=== PATIENT | female | born 2000 | race Hispanic/Latino ===

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

== ENCOUNTER 2021-07-20 05:34 | Emergency (ER) | payer OTHER ==
[2021-07-20] MEDS ORDERED: Naproxen 500 MG TAB ONE (06:03)
== END 2021-07-20 06:06 | disposition home or self-care (01) ==
LOC: NAV ERS 05:34
DX: K08.89 Other specified disorders of teeth and supporting structures (principal); E66.01 Morbid (severe) obesity due to excess calories; R11.0 Nausea; D64.9 Anemia, unspecified; R51.9 Headache, unspecified
CPT/HCPCS: 99283

== ENCOUNTER 2021-12-03 07:18 | Emergency (ER) | payer OTHER ==
[2021-12-03] MEDS ORDERED: diphenhydrAMINE 50 MG/ML VIAL ONE (08:53)
[2021-12-03] MEDS ORDERED: Ketorolac Tromethamine 30 MG/ML VIAL ONE (08:53)
[2021-12-03] MEDS ORDERED: Prochlorperazine 10 MG/2 ML VIAL ONE (08:53)
[2021-12-03] MEDS ORDERED: Sodium Chloride 0.9% 1,000 ML ONE (08:53)
== END 2021-12-03 10:18 | disposition home or self-care (01) ==
LOC: NAV ERS 07:18
DX: G43.909 Migraine, unspecified, not intractable, without status migrainosus (principal); D64.9 Anemia, unspecified
CPT/HCPCS: 96365; 96375; J0780; J1200; J1885; J7050

== ENCOUNTER 2023-01-18 18:59 | Emergency (ER) | payer BC, OTHER ==
[2023-01-18 19:26] LABS: #Basophils 0.1 thou/uL (0.0-0.2); #Eosinphils 0.3 thou/uL (0.0-0.7); #Lymphocytes 2.8 thou/uL (1.20-3.40); #Monocytes 0.5 thou/uL (0.11-0.59); #Neutrophils 3.8 thou/uL (1.40-6.50); %Basophils 1.1 % (0.0-1.0); %Eosinophils 3.4 % (0.0-10.0); %Lymphocytes 37.7 % (21.0-51.0); %Monocytes 6.9 % (0.0-10.0); %Neutrophils 50.9 % (42.0-75.0); Hemoglobin 13.8 g/dL (12.0-16.0); Mean Corpuscular HGB CONC 33.1 g/dL (32.0-36.0); Mean Corpuscular Hemoglobin 31.2 pg (27.0-31.0); Mean Corpuscular Volume 94.2 fl (78.0-98.0); Mean Platelet Volume 8.7 fL (7.4-10.4); Platelet Count 289 10x3/uL (130-400); RBC Distribution Width 11.7 % (11.5-14.5); Red Blood Cell (RBC) Count 4.43 mill/uL (4.20-5.40); White Blood Cell (WBC) Count 7.5 10x3/uL (4.8-10.8)
[2023-01-18 19:41] LABS: ALT (SGPT) 21 U/L (8-55); AST (SGOT) 18 U/L (5-34); Albumin 4.2 g/dL (3.5-5.0); Alkaline Phosphatase 110 U/L (40-110); Anion Gap 14 mmol/L (10-20); BUN (Urea Nitrogen) 9 mg/dL (7.0-18.7); Bilirubin, Total 0.2 mg/dL (0.2-1.2); Calc. Creatinine Clearance 0 mL/min (70-130); Calcium 8.9 mg/dL (7.8-10.44); Carbon Dioxide 21 mmol/L (22-29); Chloride 107 mmol/L (98-107); Estimated GFR 119; Globulin 3.1 g/dL (2.4-3.5); Glucose 110 mg/dL (70-105); Lipase 27 U/L (8-78); Potassium 3.8 mmol/L (3.5-5.1); Protein, Total 7.3 g/dL (6.0-8.3); Sodium 138 mmol/L (136-145)
[2023-01-18] MEDS ORDERED: Ibuprofen 200 MG TAB ONE (20:35)
[2023-01-18 22:22] LABS: Troponin I Less than 0.010 ng/mL (< 0.028)
== END 2023-01-18 22:38 | disposition home or self-care (01) ==
LOC: NAV ERS 18:59
DX: R07.89 Other chest pain (principal)
CPT/HCPCS: 71045; 80053; 83690; 84484; 85025; 85379; 93005

== ENCOUNTER 2024-07-03 07:15 | Emergency (ER) | payer BC, OTHER ==
[2024-07-03 07:38] LABS: #Eosinphils 0.1 thou/uL (0.0-0.7); #Lymphocytes 1.7 thou/uL (1.20-3.40); #Monocytes 0.3 thou/uL (0.11-0.59); #Neutrophils 3.8 thou/uL (1.40-6.50); %Basophils 0.6 % (0.0-1.0); %Monocytes 5.1 % (0.0-10.0); %Neutrophils 64.3 % (42.0-75.0); Hematocrit 41.2 % (36.0-47.0); Hemoglobin 13.2 g/dL (12.0-16.0); Mean Corpuscular Hemoglobin 28.1 pg (27.0-31.0); Mean Corpuscular Volume 87.8 fl (78.0-98.0); Platelet Count 267 10x3/uL (130-400); RBC Distribution Width 13.6 % (11.5-14.5); Red Blood Cell (RBC) Count 4.69 mill/uL (4.20-5.40); White Blood Cell (WBC) Count 5.9 10x3/uL (4.8-10.8)
[2024-07-03 07:49] LABS: BHCG - Serum Negative (NEGATIVE); Pregs Control Bar Appear? YES (CONTROL BAR)
[2024-07-03 07:53] LABS: ALT (SGPT) 12 U/L (8-55); AST (SGOT) 16 U/L (5-34); Albumin 4.2 g/dL (3.5-5.0); Alcohol 96.3 mg/dL (Less than 10); Alkaline Phosphatase 96 U/L (40-110); Anion Gap 20 mmol/L (10-20); BUN (Urea Nitrogen) 5 mg/dL (7.0-18.7); Bilirubin, Total 0.4 mg/dL (0.2-1.2); Calc. Creatinine Clearance 0 mL/min (70-130); Calcium 8.9 mg/dL (7.8-10.44); Carbon Dioxide 16 mmol/L (22-29); Chloride 107 mmol/L (98-107); Estimated GFR 125; Globulin 3.9 g/dL (2.4-3.5); Glucose 114 mg/dL (70-105); Lipase 39 U/L (8-78); Potassium 3.1 mmol/L (3.5-5.1); Protein, Total 8.1 g/dL (6.0-8.3); Sodium 140 mmol/L (136-145)
[2024-07-03] MEDS ORDERED: Sodium Chloride 0.9% 1,000 ML ONE (09:08)
[2024-07-03] MEDS ORDERED: Ondansetron PF 4 MG/2 ML Vial ONE (09:08)
[2024-07-03] MEDS ORDERED: Morphine 2 MG/ML VIAL ONE (09:08)
[2024-07-03 09:20] LABS: Bilirubin Negative (Negative); Blood, Urine Small (Negative); Clarity Clear (Clear); Glucose, Urine (Dipstick) Negative (Negative); Ketone, Urine 15 mg/dL (Negative); Leukocyte Negative (Negative); Nitrite Negative (Negative); Protein, Urine (Dipstick) Trace mg/dL (Neg-Trace); Urobilinogen 0.2 mg/dL (Less than 2)
[2024-07-03 09:26] LABS: CAUTI Indications for Culture Pelvic or flank pain; RBC/HPF 0-3 HPF (0-3); WBC/HPF 0-3 HPF (0-3)
[2024-07-03 09:27] LABS: Bacteria/HPF Rare-Few HPF (None Seen); Mucous/LPF 1+ LPF (<2+); Urine Culture Reflex No No
== END 2024-07-03 10:00 | disposition home or self-care (01) ==
LOC: NAV ERS 07:15
DX: S02.2XXA Fracture of nasal bones, initial encounter for closed fracture (principal); S60.221A Contusion of right hand, initial encounter; F10.129 Alcohol abuse with intoxication, unspecified; V57.5XXA Driver of pick-up truck or van injured in collision with fixed or stationary object in traffic accident, initial encounter
CPT/HCPCS: 70450; 70486; 71260; 72125; 74177; 80053; 80307; 81001; 83690; 84703; 85025; 96374; 96375; G0390; J2272; J2405; J7030